=== PATIENT | male | born 1980 | race Caucasian/White ===

== ENCOUNTER 2017-01-27 03:05 | Emergency (ER) | payer OTHER ==
[~2017-01-27] VITALS: Ht 172.7 cm; Wt 76.7 kg
[~2017-01-27 03:05] MED LIST: ESTR2TAB SL
--- NOTE | 2017-01-27 03:30 | NUR ---
PT PRESENTED TO THE ER WITH A C/O N/V AND BURNING PAIN FROM HER STOMACH TO HER STERNUM. PT IS ON THE MONITOR AND CONTINUOUS PULSE OX.
[2017-01-27] MEDS ORDERED: FAMOTIDINE (20 MG) 20 MG TABLET ONE (04:09)
[2017-01-27] MEDS ORDERED: MAG HYDROX/AL HYDROX/SIMETH 30 ML UDC ONE (04:09)
[2017-01-27] MEDS ORDERED: LIDOCAINE VISCOUS 2% UD 15 ML UDC ONE (04:09)
--- NOTE | 2017-01-27 04:15 | NUR ---
PT REC'D MEDICATION ORDERED.
[2017-01-27] MEDS ORDERED: FAMOTIDINE (20 MG) 20 MG TABLET PO ONE (04:30)
[2017-01-27] MEDS ORDERED: LIDOCAINE 2% JEL UROJET 10 ML MM ONE (04:30)
[2017-01-27] MEDS ORDERED: MAG HYDROX/AL HYDROX/SIMETH 30 ML UDC PO ONE (04:30)
--- NOTE | 2017-01-27 04:57 | NUR ---
PT APPEARS TO BE RESTING COMFORTABLY WITH NO S/S OF PAIN OR DISTRESS.
[2017-01-27 06:22] VITALS: BP 99/55
== END 2017-01-27 06:22 | disposition home or self-care (01) ==
LOC: ER 03:05
DX: K21.9 Gastro-esophageal reflux disease without esophagitis (principal); F17.200 Nicotine dependence, unspecified, uncomplicated
CPT/HCPCS: 99283; A4606; Z7610

== ENCOUNTER 2017-07-01 23:40 | Emergency (ER) | payer OTHER ==
--- NOTE | 2017-07-02 00:36 | NUR ---
PT CALLED TO ROOM, NO RESPONSE.
--- NOTE | 2017-07-02 00:47 | NUR ---
PT CALLED TO ROOM. NO RESPONSE.
== END 2017-07-02 00:50 | disposition left against medical advice (07) ==
LOC: ER 23:40
DX: Z53.21 Procedure and treatment not carried out due to patient leaving prior to being seen by health care provider (principal)

== ENCOUNTER 2017-07-11 13:07 | Emergency (ER) | payer OTHER ==
[~2017-07-11] VITALS: Ht 170.2 cm; Wt 72.6 kg
--- NOTE | 2017-07-11 13:30 | NUR ---
PT CAME IN WITH C/O DIZZINESS, DENIES OTHER SYMPTOMS. NAD NOTED. VSS. SEEN BY LIVE STUDY MANAGER FOR EVAL. SAFETY AND COMFORT MEASURES PROVIDED. WILL MONITOR.
--- NOTE | 2017-07-11 13:48 | NUR ---
LEARNING SUPPORT ASSISTANT AT FOR BLOOD DRAW.
[2017-07-11 14:28] LABS: BASOPHILS # (AUTO) 0.1 /CMM (0.0-0.2); BASOPHILS % (AUTO) 0.6 % (0.0-2.0); EOSINOPHILS # (AUTO) 0.1 /CMM (0.0-0.7); EOSINOPHILS % (AUTO) 1.5 % (0.0-6.0); HEMATOCRIT 48 % (33-45); HEMOGLOBIN 15.9 g/dL (11.5-14.8); LYMPHOCYTES # (AUTO) 3.4 /CMM (0.8-4.8); LYMPHOCYTES % (AUTO) 34.3 % (20.0-44.0); MEAN CORPUSCULAR HEMOGLOBIN 28 PG (26.0-33.0); MEAN CORPUSCULAR HGB CONC 33 g/dl (31.0-36.0); MEAN CORPUSCULAR VOLUME 84 fL (82-100); MONOCYTES # (AUTO) 0.6 /CMM (0.1-1.30); MONOCYTES % (AUTO) 5.8 % (2.0-12.0); NEUTROPHILS # (AUTO) 5.6 /CMM (1.8-8.9); NEUTROPHILS % (AUTO) 57.8 % (43.0-81.0); PLATELET COUNT (AUTO) 302 /CMM (150-450); RDW COEFFICIENT OF VARIATION 12.6 (11.5-15.0); RED BLOOD CELL COUNT(AUTO) 5.71 MIL/uL (4.0-5.2); WHITE BLOOD COUNT (AUTO) 9.8 K/uL (4.3-11.0)
[2017-07-11 14:45] LABS: CALCIUM, SERUM 9.8 mg/dL (8.5-10.1); POTASSIUM 3.6 mmol/L (3.5-5.1)
[2017-07-11 14:50] LABS: INR 0.96 (0.87-1.13)
--- NOTE | 2017-07-11 15:35 | NUR ---
Patient discharged to home in stable condition. Written and verbal after care instructions given. Patient verbalizes understanding of instruction.
[2017-07-11 15:40] VITALS: BP 124/67
== END 2017-07-11 15:44 | disposition home or self-care (01) ==
LOC: ER 13:10
DX: H81.10 Benign paroxysmal vertigo, unspecified ear (principal); F17.200 Nicotine dependence, unspecified, uncomplicated; Z98.82 Breast implant status; Z79.890 Hormone replacement therapy; R79.1 Abnormal coagulation profile
CPT/HCPCS: 36415; 70450; 80048; 85025; 85730; 99285; A4606; Z7610

== ENCOUNTER 2017-07-13 18:16 | Emergency (ER) | payer OTHER ==
[~2017-07-13] VITALS: Ht 170.2 cm; Wt 73.5 kg
[2017-07-13 18:16] VITALS: BP 123/63
== END 2017-07-13 19:54 | disposition home or self-care (01) ==
LOC: ER 18:19
DX: R42 Dizziness and giddiness (principal); F17.200 Nicotine dependence, unspecified, uncomplicated; Z79.890 Hormone replacement therapy; Z98.82 Breast implant status
CPT/HCPCS: 99281; A4606; Z7610; Z7502